=== PATIENT | female | born 1945 | race Caucasian/White ===

== ENCOUNTER → 2017-04-12 | Outpatient (CLI) | payer OTHER, MEDICARE ==
[~2017-04-12] VITALS: Ht 170.2 cm; Wt 66.8 kg
[~2017-04-12] MED LIST: AMLODIPINE BESY10 MG; FLEXERIL; GLUMETZA500 PO; HYDROCODON-ACE1 EACH; LISINOPRIL20 MG; LUNESTA3 MG PO; MOBIC15 MG; NAPROSYN500 MG; NEURONTIN 300300 M1; PRAVACHOL40 MG PO; RESTASIS1 EACH; VITAMIN B-6200 M1; VITAMIN D400 UNI1
--- NOTE | ~2017-04-12 | HPC ---
[facility] [place] [address] PAIN MANAGEMENT CONSULTATION Name: KENJI FAUSTIN [facility]: [facility] [id number] Admission: 04/12/17 Attend Phys: Rob Saab MD Discharge: Date of : 47 Report #: [id number] THIS REPORT FOR: //name// CC: Esther Saab DATE OF SERVICE: 04/12/2017 Followup visit for right occipital headache, greater occipital neuralgia. The patient returns to pain clinic today in followup. She was last seen 8 months ago. At that time, she received a single greater occipital nerve block and reported substantial relief for over 6 months. Pain has been returning recently and she is here today hopeful that we can provide her with a same relief with a similar injection. Pain is described as an intermittent, tense electrical pain, 4-10/10. It occurs oftentimes when she is rotating her head. She may have had previous trauma resulting in some changes to the cervical facet and disk in the upper cervical region, although we do not have recent x-rays. The pain at times is completely gone. It is not a constant pain, but when it occurs, it is almost enough to bring her to her knees. We were able to eliminate that pain with her last injection for the extended period of time. MEDICATIONS: Include gabapentin 600 mg t.i.d., metformin, pravastatin and Lunesta. ALLERGIES: To PENICILLIN. PAST MEDICAL HISTORY: Mastectomy and multiple revisions. She has had surgery for lymphedema, rotator cuff repair. In last 5 years, she has had over 15 surgeries and procedures. REVIEW OF SYSTEMS: Positive for arthritis and joint pain, occasional lightheadedness and dizziness and reports a history of depression. PHYSICAL EXAMINATION: She is very pleasant and upbeat today. Blood pressure is 166/91, heart rate is 85, respirations 16. HEENT is normal. Neck range of motion is limited in rotation. Cervical rotation is decreased by over 50% to the left and over 65-70% to the right. She has localized tenderness below the occiput on the right. She has tenderness along this upper cervical facet joints. The rest of the range of motion of the cervical spine is normal with lateral tilt and flexion and extension. Deep tendon reflexes are diminished symmetrically and throughout her upper and lower extremities to 1+ biceps, triceps, brachioradialis, knees and ankles. She has no focal weakness. Gait is normal. [address] [address] PAIN MANAGEMENT CONSULTATION Name: KENJI FAUSTIN Room #: REG CLI [facility]#: [id number] Admission: 04/12/17 Attend Phys: Rob Saab MD Discharge: Date of : 47 Report #: [id number] IMPRESSION: Cervicalgia with occipital neuralgia, greater occipital nerve on the right. RECOMMENDATIONS: Given her good response to previous injection, I have agreed to repeat the injection exactly as before, risks and benefits were reviewed. PROCEDURE: The patient was placed prone, skin was prepped with ChloraPrep. Skin was anesthetized just below the occiput, 2 fingerbreadths from midline. I then used a 25-gauge needle and injected in shaped distribution a depth of about 1-1/4 inch to 1-1/2 inch, a total of 5 mL of 0.5% bupivacaine mixed with 40 mg triamcinolone. She tolerated the procedure well and was observed for a short time and discharged with improvement in her underlying pain. Follow up as needed. No medications ordered. By: [id number] Rob Saab MD /nt
[2017-04-12 08:31] VITALS: BP 166/91
== END ==
LOC: PAIN 06:58
DX: M54.81 Occipital neuralgia (principal); F32.9 Major depressive disorder, single episode, unspecified; M19.90 Unspecified osteoarthritis, unspecified site

== ENCOUNTER → 2018-09-16 | Outpatient (CLI) | payer OTHER, MEDICARE ==
[~2018-09-16] VITALS: Ht 167.6 cm; Wt 67.9 kg
[~2018-09-16] MED LIST changes: +ASPIRIN325 PO; +CALCIUM CITRAT1 EA15 PO; +CELEXA10 MG PO; +DICLOFENAC SODI75 MG PO; +LYRICA 75 MG CA75 MG PO; -NEURONTIN 300300 M1; +NEURONTIN600 MG PO; +OXYCODONE-ACET1 EACH PO; +TRAMADOL 50 MG50 MG PO
--- NOTE | ~2018-09-16 | HPC ---
[facility] [place] [address] PAIN MANAGEMENT CONSULTATION Name: KENJI FAUSTIN Room #: [facility]#: [id number] Admission: 09/16/18 Attend Phys: Rob Saab MD Discharge: Date of : 47 Report #: [id number] THIS REPORT FOR: //name// CC: Esther Saab DATE OF SERVICE: 09/16/2018 REASON FOR VISIT: Followup visit for chronic back pain, osteoarthritis, lumbar radiculopathy in the left, left hip pain and peripheral neuropathy. HISTORY OF PRESENT ILLNESS: The patient returns to the pain clinic today and is here to discuss the transition off of gabapentin to Lyrica. She has multiple pain complaints, which are described above. Some of these overlapped. She has pain in the hip and is planning hip replacement with Dr. Yuen. He has opined that some of her left leg radiating pain is related to her hip. This may be true. We will see after she has had a replacement. Her primary complaint is bilateral lower extremity pain with neuropathy. She has been on gabapentin, which previously had controlled this fairly effectively. At her last visit, her primary complaint was a radicular like pain into the left leg. Today, she seems to indicate that most of her pain is related to peripheral neuropathy and that she describes more bilateral stocking distribution discomfort beginning without upper calf and radiating down into the feet. It is present throughout the day. It affects her gait. She previously felt gabapentin was helpful but no longer does and wants to try Lyrica. She complains also of chronic low back pain. She has discomfort, radiating across the lumbosacral spine that may be consistent with radiculopathy in the lower extremities. She had an epidural injection, which was unhelpful. She has also had sacroiliac injection on the right in [place], which she also felt was unhelpful but is now walking better without a walker and does not complain. I noted that her last visit, her pain was so severe that she was using a walker. She could not walk any distance. We provided her with an epidural injection on 08/12/2018 and she has had marked improvement in her gait, which I note, but she seems to have forgotten. PHYSICAL EXAMINATION: GENERAL: Pleasant female. VITAL SIGNS: Blood pressure is 179/95, heart rate 78, respirations 16, O2 sat [address] [address] PAIN MANAGEMENT CONSULTATION Name: KENJI FAUSTIN Room #: REG CLI [facility]#: [id number] Admission: 09/16/18 Attend Phys: Rob Saab MD Discharge: Date of : 47 Report #: [id number] and her BMI is 24.2. MUSCULOSKELETAL: She moves from sitting to standing position, walks today without much in the way of antalgic features. She does not use a walker today. She has some decrease sensation to the light touch throughout the lower extremities in a stocking distribution. Strength is judged to be normal. Straight leg raising is positive on the left, although this may involve the hip. She has some pain with internal or external rotation of the hip joint. Pain across the lumbosacral segment. IMPRESSION: 1. Chronic low back pain with radiculopathy. 2. Now complains of peripheral neuropathy with stocking distribution. 3. Osteoarthritis, multiple joints, left hip, most predominant. She has scheduled hip replacement with Dr. Yuen in September. 4. History of chemotherapy for breast cancer as the likely cause of her peripheral neuropathy. Follows up with Dr. Rob Vallecillo. PLAN: 1. Transition off of gabapentin over 72 hours. 2. Begin Lyrica at 50 mg t.i.d. and then increasing to 75 mg t.i.d. Samples were given for this transition and then prescriptions for the higher dose. 3. Consider the use of tramadol for severe pain and she was given a prescription for 60 tablets, 1 tablet t.i.d. p.r.n. All medications were reviewed and reconciled. She currently denies use of an antidepressant or an SSRI medication. Followup visit planned in 3 weeks. By: [id number] Rob Saba MD /nt
[2018-09-16 13:54] VITALS: BP 179/95
== END ==
LOC: PAIN 07:16
DX: M54.16 Radiculopathy, lumbar region (principal); M16.12 Unilateral primary osteoarthritis, left hip; G62.9 Polyneuropathy, unspecified; G89.29 Other chronic pain; Z79.899 Other long term (current) drug therapy

== ENCOUNTER → 2018-12-02 | Outpatient (CLI) | payer OTHER, MEDICARE ==
[~2018-12-02] VITALS: Ht 167.6 cm; Wt 68.5 kg
[~2018-12-02] MED LIST changes: +KEFLEX500 M1 PO; +NAPROXEN375 M1 PO; +PRED FORTE 1% EY5 M1 OP; +RESTASIS MULTI5.5 ML OPHTHALMIC; +VOLTAREN GEL 1100 G2 TOP
--- NOTE | ~2018-12-02 | HPC ---
[facility] [place] [address] PAIN MANAGEMENT CONSULTATION Name: KENJI FAUSTIN Room #: [facility] [id number] Admission: 12/02/18 Attend Phys: Rob Saab MD Discharge: Date of : 47 Report #: [id number] THIS REPORT FOR: //name// CC: Esther Saab DATE OF SERVICE: 12/02/2018 A 25-minute followup visit to discuss cervical pain. The patient returns to the clinic today complaining of pain mostly in the right side of her neck. Pain is described as a deep ache. Pain intensity is 6/10. The pain is severe with rotational movements, particularly turning her neck to the right. Interestingly, when she tilts her head to the ipsilateral side, the pain feels better. She often feels that there is a muscle spasm in that location. She has no x-rays, even plain films. She has had no specific treatment for this pain, which has been present on and off over the course of the last 7 years. It has only been within the last month or two that the pain has worsened. She recently underwent hip replacement. Dr. Yuen perform the surgery and she is doing well. She has recently started therapy. She has been taking hydrocodone up to 3 tablets a day and was given prescription following surgery and a second prescription at followup visit. She is not using it as regularly at this point. MEDICATIONS: Her other medications include Naproxen, Restasis eye drops, tramadol 3 times daily, Lyrica 75 mg t.i.d., citalopram daily and calcium citrate. ALLERGIES: PENICILLIN. PQRS REVIEW: Positive for osteoarthritis, status post left hip replacement. BMI is 24.4. Blood pressure 142/86. Pain intensity 6/10. She is not a fall risk at this time point, but is cautious following her hip replacement. She is on no blood thinners. No history of hypertension and is not currently on an opioid agreement through our clinic; we did not prescribe for her, although I have given her tramadol in the past, which she uses on a p.r.n. basis. I have agreed to provide her with additional 60 tablets a day for severe pain. I have also agreed to prescribe her Lyrica 75 mg, she takes 3 times daily for chronic neuropathy. She denies the use of tobacco. PHYSICAL EXAMINATION: GENERAL: Pleasant female. [address] [address] PAIN MANAGEMENT CONSULTATION Name: KENJI FAUSTIN Room #: REG CLI [facility]#: [id number] Admission: 12/02/18 Attend Phys: Rob Saab MD Discharge: Date of : 47 Report #: [id number] VITAL SIGNS: Blood pressure 142/86, heart rate 79 and respirations 18. BMI 24.4. HEENT: Examination of the head is within normal limits. Pupils equal, round and react to light. EOMs are intact. NECK: Supple. She has pain in the right side of her neck with rotational movements. There is pain just below the occiput and localized tenderness along the lateral aspect of the cervical spine. She has increased pain with neck extension. EXTREMITIES: Examination of the upper and lower extremities is normal. No changes in strength or sensation. Deep tendon reflexes are diminished in biceps, triceps and brachioradialis. IMPRESSION AND PLAN: Cervicalgia. This is most likely related to either C1-C2 or C2-C3 facet arthropathy on the right. I have ordered plain film x-rays, which I will review. A followup visit is scheduled and she may be a good candidate for facet injection under fluoroscopic guidance. Greater occipital nerve injection may also be of benefit. By: [id number] Rob Saab MD /nt
[2018-12-02 10:42] VITALS: BP 142/86
--- NOTE | 2018-12-02 10:51 | NUR ---
Pain Clinic Assessment: 1. History of Osteoarthritis: NECK History of Rheumatoid Arthritis: Not Applicable 2. Height: 5 ft. 6 in. 167.6 cm. Weight: 151.0 lb. oz. 68.493 kg. Patient's BMI: 24.4 3. Vital Signs: BP: 142/86 Pulse: 79 Resp: 18 Temp: 02 Sat: 93 ECG Mon: 4. Pain Intensity: 6 5. Fall Risk: Dizziness: N Needs help standing or walking: N Fallen in the last 3 months: N Fall risk comments: USES WALKER 6. Patient on Blood Thinner: None 7. History of Hypertension: N 8. Opioid Therapy greater than 6 weeks: N Opiate Contract Signed: 9. Risk Assessment Tool Provided: LOW-2 10. Functional Assessment Tool: 47/ 11. Recreational Drug Use: Never Drug Type: Tobacco Use: Never Smoker Tobacco Type: Amount or Packs/day: How Many Years: Alcohol Use: Yes Frequency: Monthly Quant: 1-2
== END | disposition home or self-care (01) ==
LOC: PAIN 07:31
DX: M54.2 Cervicalgia (principal); M16.12 Unilateral primary osteoarthritis, left hip; Z96.642 Presence of left artificial hip joint; Z79.891 Long term (current) use of opiate analgesic; Z88.0 Allergy status to penicillin; Z79.899 Other long term (current) drug therapy; Z98.890 Other specified postprocedural states

== ENCOUNTER → 2018-12-30 | Outpatient (CLI) | payer OTHER, MEDICARE ==
[~2018-12-30] VITALS: Ht 167.6 cm; Wt 69.7 kg
[2018-12-30 10:36] VITALS: BP 151/83
--- NOTE | 2018-12-30 11:13 | NUR ---
Pain Clinic Assessment: 1. History of Osteoarthritis: NECK History of Rheumatoid Arthritis: Not Applicable 2. Height: 5 ft. 6 in. 167.6 cm. Weight: 153.6 lb. oz. 69.672 kg. Patient's BMI: 24.8 3. Vital Signs: BP: 151/83 Pulse: 94 Resp: 16 Temp: 02 Sat: 99 ECG Mon: 4. Pain Intensity: 7 5. Fall Risk: Dizziness: Y Needs help standing or walking: N Fallen in the last 3 months: N Fall risk comments: USES WALKER 6. Patient on Blood Thinner: None 7. History of Hypertension: N 8. Opioid Therapy greater than 6 weeks: N Opiate Contract Signed: 9. Risk Assessment Tool Provided: LOW-2 10. Functional Assessment Tool: 11. Recreational Drug Use: Never Drug Type: Tobacco Use: Never Smoker Tobacco Type: Amount or Packs/day: How Many Years: Alcohol Use: No Frequency: Quant:
--- NOTE | 2019-01-01 15:34 | HPC ---
[facility] [place] [address] [address] PAIN MANAGEMENT CONSULTATION Name: KENJI FAUSTIN Room #: REG [facility] [id number] Admission: 12/30/18 Attend Phys: Rob Saab MD Discharge: Date of : 47 Report #: [id number] THIS REPORT FOR: //name// CC: Esther Saab DATE OF SERVICE: 12/30/2018 Followup visit for cervicalgia related to facet arthropathy, C3-C4, C4-C5, C5-C6. X-ray evidence of significant degenerative changes primarily at C5-C6 and C4-C5. The patient returns today for facet treatments. She continues to complain of pain on a daily basis. Pain is significantly worse with lateral tilt. Pain radiates up as well up to the occiput. We discussed at previous visit injection therapy that would be based upon findings of the x-ray that we performed. It did confirm our assessment clinically that she had facet arthropathy. I explained the potential risks and benefits of facet injections. Our hope is that these would provide substantial relief over a long duration and could be used as a management tool for her. Gentle range of motion, exercises, as well as anti-inflammatory medications have also been recommended. Side effects of treatment and medications reviewed. PHYSICAL EXAMINATION: Pleasant female, alert and oriented. Blood pressure 151/83, heart rate 84. Tenderness along the right side of the neck in the mid-range. Pain with lateral tilt both right and left. Pain with gentle rotation. There is no radiating pain into the arm. IMPRESSION: Facet arthropathy involving C4-C5, C5-C6. PROCEDURE: Facet injections under fluoroscopic guidance, right C4-C5 and C5-C6. She was taken to fluoroscopic suite, placed prone. Skin prepped with ChloraPrep. Skin anesthetized on the right with 1% lidocaine overlying the facet joints. A 25-gauge needle was then gently advanced into each joint using biplanar fluoroscopic views. Prior to injection, I injected one 0.25 mL of Omnipaque that demonstrated extravascular location and injection within the facet joint along the lateral capsule. At each level, I injected 3/4 milliliter of 0.5% bupivacaine mixed with 20 mg of triamcinolone. She tolerated the procedures well. She was taken to recovery room and observed for a short time before discharge. Her presenting pain score 7/10, discharge pain score 1/10. Follow up as needed. No medications ordered for today's visit. <ELECTRONICALLY SIGNED> By: Rob Saab MD 01/01/19 [id number] Rob Saab MD /nt
== END | disposition home or self-care (01) ==
LOC: PAIN 07:02
DX: M47.812 Spondylosis without myelopathy or radiculopathy, cervical region (principal); G89.29 Other chronic pain; Z88.0 Allergy status to penicillin; Z79.899 Other long term (current) drug therapy; Z98.890 Other specified postprocedural states

== ENCOUNTER → 2020-05-31 | Outpatient (CLI) | payer OTHER, MEDICARE ==
[~2020-05-31] VITALS: Ht 167.6 cm; Wt 70.7 kg
[~2020-05-31] MED LIST changes: +ASA81BEC PO; +LEXAPRO 10 MG T10 M1 PO; +LIPITOR80 MG PO; +NEXIUM20 MG PO; +PLAVIX 75 MG TA75 MG PO; +TOPROL XL25 MG; +TURMERIC500 M2 PO
--- NOTE | ~2020-05-31 | HPC ---
[facility] [place] [address] PAIN MANAGEMENT CONSULTATION Name: KENJI FAUSTIN Room #: REG [facility] Myriam.#: [id number] Admission: 05/31/20 Attend Phys: Rob Saab MD Discharge: Date of : 47 Report #: [id number] THIS REPORT FOR: cc: Esther Olivares MD,Esther Saab,Rob Betts MD ~ CC: Esther Saab DATE OF SERVICE: 05/31/2020 CHIEF COMPLAINT: Low back pain. HISTORY OF PRESENT ILLNESS: The patient is here for the first time in roughly 17 months. Much has transpired in that time. She has suffered a myocardial infarction in June and stents were placed. She is currently on Plavix. She is now complaining of pain with mechanical in nature in her low back that is relatively focal in the area of the sacroiliac joint. She has had bilateral hip replacements. This pain is on the left. She also has some numbness in her feet, but does not have classic radicular symptoms. She saw Dr. Larkin who performed an EMG. I reviewed those studies and they are not very helpful. The interpretation is "there is EMG evidence of either chronic bilateral lumbosacral polyradiculopathy or chronic proximal axonal polyneuropathy." An MRI followed and was reported as multilevel spondylosis without evidence of nerve compression or significant spinal canal or neural foraminal narrowing. There was, however, disk desiccation noted at almost every level. This can cause some axial back pain and occasionally radiculopathy without a compressive component. She is currently on Plavix and is not a candidate for an epidural injection today. She may also be a candidate for injection of inflamed joint identified on physical exam. All medications were reviewed and reconciled from electronic medical record including the Plavix, which she took last night. PQRS: Positive for spondylosis of the neck, osteoarthritis with bilateral hip replacements. The patient's BMI is 25.2, blood pressure 159/90, heart rate 75, respirations 18, O2 sat 95. Pain intensity is 7/10. She uses a walker at times. She is hypertensive and is not currently on opioids. Her risk assessment score is 2. Functional assessment score is 52 suggesting significant impact on all of her daily activities related to this pain. She does not smoke nor use alcohol. PHYSICAL EXAMINATION: GENERAL: She is pleasant, alert and oriented, wearing a mask for COVID restrictions. [address] [address] PAIN MANAGEMENT CONSULTATION Name: KENJI FAUSTIN Room #: REG CLI [facility]#: [id number] Admission: 05/31/20 Attend Phys: Rob Saab MD Discharge: Date of : 47 Report #: [id number] NECK: Supple. CHEST: Clear. CARDIAC: Rhythm was regular. I could not appreciate a murmur. Normal physiologic split S2. ABDOMEN: Soft. She moves independently from sitting to standing position. Her gait is antalgic. She has tenderness across her low back. There is localized tenderness overlying the sacroiliac joint on the left. She has generalized weakness of the lower extremities with hip flexion restricted; leg extension, plantar and dorsiflexion all noted to be slightly diminished. Straight leg raising is negative bilaterally. IMPRESSION: 1. Chronic intractable pain with low back pain, likely spondylitic. She has marked tenderness over the sacroiliac joint. 2. Sacroiliitis. We will schedule her to return for sacroiliac joint under fluoroscopic guidance. Lengthy discussion about medications. She cannot be on an anti-inflammatory drug and they are not helpful. She is already taking Lyrica 75 mg b.i.d., that dose could be increased. I will let her discuss that further with her primary care physician prescribing. I did give her a trial of tramadol, which she used with some success. She can use that for severe pain. We talked about the serotonin syndrome. She is on 10 mg of Lexapro a day. Taking a single tramadol or 1-2 tramadol later in the day after her morning dose of Lexapro should be safe. I discussed the presentation of excessive serotonin within the system and she will be monitoring that carefully. She is not inclined to take other opioids at this time. Followup visit in a few days for sacroiliac injection. By: [id number] Rob Saab MD /nt
[2020-05-31 09:21] VITALS: BP 159/90
--- NOTE | 2020-05-31 09:33 | NUR ---
Pain Clinic Assessment: 1. History of Osteoarthritis: NECK History of Rheumatoid Arthritis: Not Applicable 2. Height: 5 ft. 6 in. 167.6 cm. Weight: 155.8 lb. oz. 70.670 kg. Patient's BMI: 25.2 3. Vital Signs: BP: 159/90 Pulse: 75 Resp: 18 Temp: 02 Sat: 97 ECG Mon: 4. Pain Intensity: 7 5. Fall Risk: Dizziness: N Needs help standing or walking: N Fallen in the last 3 months: N Fall risk comments: USES WALKER 6. Patient on Blood Thinner: Clopidogrel Bisulf(Plavix 7. History of Hypertension: Y 8. Opioid Therapy greater than 6 weeks: N Opiate Contract Signed: 9. Risk Assessment Tool Provided: LOW-2 10. Functional Assessment Tool: 11. Recreational Drug Use: Never Drug Type: Tobacco Use: Never Smoker Tobacco Type: Amount or Packs/day: How Many Years: Alcohol Use: No Frequency: Quant:
== END ==
LOC: PAIN 06:49
PROVIDERS: ATTEND Anesthesiology Pain Medicine
DX: M54.5 Low back pain (principal); M46.1 Sacroiliitis, not elsewhere classified; Z79.899 Other long term (current) drug therapy

== ENCOUNTER → 2020-06-07 | Outpatient (CLI) | payer OTHER, MEDICARE ==
[~2020-06-07] VITALS: Ht 167.6 cm; Wt 69.5 kg
--- NOTE | ~2020-06-07 | HPC ---
[address] [address] PAIN MANAGEMENT CONSULTATION Name: KENJI FAUSTIN [facility] [id number] Admission: 06/07/20 Attend Phys: Rob Saab MD Discharge: Date of : 47 Report #: [id number] THIS REPORT FOR: cc: Esther Olivares MD,Esther Saab,Rob Betts MD ~ CC: Esther Saab DATE OF SERVICE: 06/07/2020 Followup visit for sacroiliac joint pain. The patient returns to pain clinic today for her right sacroiliac joint injection. She has localized tenderness, was evaluated in clinic just one week ago. She remains on Plavix. We discussed the procedure, potential risks and benefits. She is anxious to proceed. PROCEDURE: Right sacroiliac joint under fluoroscopic guidance. After informed consent, she was taken to fluoroscopic suite, placed prone, skin prepped with ChloraPrep. Skin was anesthetized with 1% lidocaine and a 27-gauge needle. We were careful to identify the posterior capsule of the joint. A 22-gauge needle was then advanced using fluoroscopic guidance until we could obtain a slight arthrogram. This was not dramatic and there was some extravasation of dye. Needle was repositioned on several locations until we obtained the arthrogram and then I injected 2 mL of 0.5% bupivacaine mixed with 40 mg of triamcinolone. She tolerated the procedure well and there were no complications. She was taken to recovery room for observation. Followup visit planned as needed. By: [id number] Rob Saab MD /nt
[2020-06-07 15:15] VITALS: BP 117/68
--- NOTE | 2020-06-07 15:23 | NUR ---
Pain Clinic Assessment: 1. History of Osteoarthritis: NECK History of Rheumatoid Arthritis: Not Applicable 2. Height: 5 ft. 6 in. 167.6 cm. Weight: 153.2 lb. oz. 69.491 kg. Patient's BMI: 24.7 3. Vital Signs: BP: 117/68 Pulse: 74 Resp: 16 Temp: 02 Sat: 97 ECG Mon: 4. Pain Intensity: 7.5 5. Fall Risk: Dizziness: N Needs help standing or walking: N Fallen in the last 3 months: N Fall risk comments: USES WALKER 6. Patient on Blood Thinner: Clopidogrel Bisulf(Plavix 7. History of Hypertension: Y 8. Opioid Therapy greater than 6 weeks: N Opiate Contract Signed: 9. Risk Assessment Tool Provided: LOW-2 10. Functional Assessment Tool: 52/ 11. Recreational Drug Use: Never Drug Type: Tobacco Use: Never Smoker Tobacco Type: Amount or Packs/day: How Many Years: Alcohol Use: No Frequency: Quant:
== END | disposition home or self-care (01) ==
LOC: PAIN 07:06
PROVIDERS: ATTEND Anesthesiology Pain Medicine
DX: M53.3 Sacrococcygeal disorders, not elsewhere classified (principal); G89.29 Other chronic pain; Z79.899 Other long term (current) drug therapy; Z88.0 Allergy status to penicillin